=== PATIENT | male | born 1960 | race Hispanic/Latino ===

== ENCOUNTER 2023-08-26 18:17 | Inpatient (IN) | payer SELFPAY ==
[2023-08-26 18:44] LABS: #Basophils 0.1 thou/uL (0.0-0.2); #Eosinphils 0.2 thou/uL (0.0-0.7); #Monocytes 1.1 thou/uL (0.11-0.59); #Neutrophils 9.2 thou/uL (1.40-6.50); %Basophils 0.5 % (0.0-1.0); %Eosinophils 1.4 % (0.0-10.0); %Lymphocytes 8.8 % (21.0-51.0); %Monocytes 9.2 % (0.0-10.0); %Neutrophils 79.9 % (42.0-75.0); Hemoglobin 14.2 g/dL (14.0-18.0); Mean Corpuscular HGB CONC 35.5 g/dL (32.0-36.0); Mean Corpuscular Hemoglobin 36.2 pg (27.0-31.0); Mean Platelet Volume 10.4 fL (7.4-10.4); Platelet Count 282 10x3/uL (130-400); RBC Distribution Width 11.9 % (11.5-14.5); Red Blood Cell (RBC) Count 3.92 mill/uL (4.70-6.10); White Blood Cell (WBC) Count 11.6 10x3/uL (4.8-10.8)
[2023-08-26 19:13] LABS: ALT (SGPT) 8 U/L (8-55); AST (SGOT) 19 U/L (5-34); Albumin 3.8 g/dL (3.4-4.8); Alkaline Phosphatase 75 U/L (40-110); Anion Gap 13 mmol/L (10-20); BUN (Urea Nitrogen) 4 mg/dL (8.4-25.7); Bilirubin, Total 0.3 mg/dL (0.2-1.2); Calc. Creatinine Clearance 0 mL/min (70-130); Calcium 9.5 mg/dL (7.8-10.44); Carbon Dioxide 22 mmol/L (23-31); Chloride 99 mmol/L (98-107); Estimated GFR 104; Globulin 4.2 g/dL (2.4-3.5); Glucose 140 mg/dL (80-115); Sodium 130 mmol/L (136-145)
[2023-08-26] MEDS ORDERED: Acetaminophen 500 MG TAB ONE ×2 (19:24→19:32)
[2023-08-26] MEDS ORDERED: Piperacillin/Tazobactam 3.375 GM VIAL ONE (19:24)
[2023-08-26] MEDS ORDERED: Boostrix 0.5 ML (Tdap) VIAL (>/=7 yrs of age) ONE (20:32)
[2023-08-26] MEDS ORDERED: LORazepam 2 MG/ML SYR.(CARPUJECT) ONE (20:32)
[2023-08-26] MEDS ORDERED: Vancomycin 1 GM/200 ML (FROZEN) BAG ONE (20:51)
[2023-08-26] MEDS ORDERED: Lorazepam 2 MG/ML VIAL IM PRN (21:38)
[2023-08-26] MEDS ORDERED: Ondansetron ODT 4 MG TAB PO PRN (21:38)
[2023-08-26] MEDS ORDERED: Lorazepam 1 MG TAB PO PRN (21:38)
[2023-08-26] MEDS ORDERED: Senokot S 8.6-50 MG TAB PO PRN (21:43)
[2023-08-26] MEDS ORDERED: Acetaminophen 325 MG TAB PO PRN (21:43)
[2023-08-26] MEDS ORDERED: Nicotine 14 MG PATCH TD PRN (21:43)
[2023-08-26] MEDS ORDERED: Calcium Carbonate 500 MG ChewTAB PO PRN (21:43)
[2023-08-26] MEDS ORDERED: Electrolyte Replacement Protocol 1 EACH FS SCH (21:45)
[2023-08-26 22:55] LABS: Hemoglobin A1c 5.5 % (4.0-6.0)
[2023-08-26 23:08] LABS: Magnesium 2.1 mg/dL (1.6-2.6); Phosphorus 3.3 mg/dL (2.3-4.7)
[2023-08-26] MEDS: Thiamine HCl 200 MG/2 ML VIAL SLOW IVP SCH (23:15)
[2023-08-27 00:34] VITALS: BMI 22.6
[2023-08-27 04:45] LABS: #Basophils 0.1 thou/uL (0.0-0.2); #Eosinphils 0.3 thou/uL (0.0-0.7); #Monocytes 0.9 thou/uL (0.11-0.59); #Neutrophils 8.2 thou/uL (1.40-6.50); %Basophils 0.5 % (0.0-1.0); %Eosinophils 2.6 % (0.0-10.0); %Lymphocytes 6.7 % (21.0-51.0); %Monocytes 8.8 % (0.0-10.0); %Neutrophils 81.1 % (42.0-75.0); Hematocrit 37.4 % (42.0-52.0); Hemoglobin 13.3 g/dL (14.0-18.0); Mean Corpuscular HGB CONC 35.6 g/dL (32.0-36.0); Mean Corpuscular Hemoglobin 36.2 pg (27.0-31.0); Mean Corpuscular Volume 101.9 fl (78.0-98.0); Mean Platelet Volume 10.7 fL (7.4-10.4); Platelet Count 252 10x3/uL (130-400); RBC Distribution Width 12.1 % (11.5-14.5); Red Blood Cell (RBC) Count 3.67 mill/uL (4.70-6.10); White Blood Cell (WBC) Count 10.1 10x3/uL (4.8-10.8)
[2023-08-27 05:17] LABS: ALT (SGPT) 10 U/L (8-55); AST (SGOT) 16 U/L (5-34); Albumin 3.3 g/dL (3.4-4.8); Alkaline Phosphatase 71 U/L (40-110); Anion Gap 10 mmol/L (10-20); BUN (Urea Nitrogen) 5 mg/dL (8.4-25.7); Bilirubin, Total 0.3 mg/dL (0.2-1.2); Calc. Creatinine Clearance 111 mL/min (70-130); Calcium 8.6 mg/dL (7.8-10.44); Carbon Dioxide 26 mmol/L (23-31); Chloride 102 mmol/L (98-107); Estimated GFR 110; Globulin 3.4 g/dL (2.4-3.5); Glucose 137 mg/dL (80-115); Potassium 3.4 mmol/L (3.5-5.1); Protein, Total 6.7 g/dL (5.8-8.1); Sodium 135 mmol/L (136-145)
[2023-08-27] MEDS: Vancomycin 1 GM in Premix Bag 1 BAG IVPB SCH ×2 (06:09→17:17)
[2023-08-27] MEDS ORDERED: Potassium Chloride 20 MEQ TAB PO SCH (08:00)
[2023-08-27] MEDS ORDERED: Lisinopril 10 MG TAB PO SCH (09:00)
[2023-08-27] MEDS ORDERED: Famotidine/PF 20 mg/2ml Vial SLOW IVP SCH (09:00)
[2023-08-27] MEDS ORDERED: Famotidine 20 MG TAB PO SCH (09:00)
[2023-08-27] MEDS: Multivit, Therapeutic 1 TAB PO SCH (09:11)
[2023-08-27] MEDS: Folic Acid 1 MG TAB PO SCH (09:11)
[2023-08-27] MEDS ORDERED: Lorazepam 2 MG/ML VIAL SLOW IVP PRN (09:52)
[2023-08-27] MEDS ORDERED: Ondansetron ODT 4 MG TAB PO PRN (10:20)
[2023-08-27] MEDS ORDERED: Aspirin 81 mg Enteric Coated Tablet PO SCH (10:30)
[2023-08-27] MEDS: Cefepime 2 GM in Sodium Chloride 0.9% 100 ML IVPB SCH ×2 (10:55→21:37)
[2023-08-27] MEDS: Lorazepam 1 MG TAB PO SCH ×3 (10:55→21:36)
[2023-08-27] MEDS: Thiamine HCl 200 MG/2 ML VIAL SLOW IVP SCH (21:37)
[2023-08-27] MEDS: Mupirocin 2% Ointment 22 GM Tube TOP SCH (21:37)
[2023-08-27] MEDS ORDERED: Lorazepam 1 MG TAB PO PRN (21:38)
[2023-08-28 05:15] LABS: #Basophils 0.1 thou/uL (0.0-0.2); #Eosinphils 0.5 thou/uL (0.0-0.7); #Monocytes 1.2 thou/uL (0.11-0.59); #Neutrophils 9.1 thou/uL (1.40-6.50); %Basophils 0.4 % (0.0-1.0); %Lymphocytes 10.1 % (21.0-51.0); %Monocytes 9.9 % (0.0-10.0); %Neutrophils 75.1 % (42.0-75.0); Hematocrit 37.2 % (42.0-52.0); Hemoglobin 12.8 g/dL (14.0-18.0); Mean Corpuscular HGB CONC 34.4 g/dL (32.0-36.0); Mean Corpuscular Hemoglobin 35.6 pg (27.0-31.0); Mean Corpuscular Volume 103.3 fl (78.0-98.0); Mean Platelet Volume 10.8 fL (7.4-10.4); Platelet Count 236 10x3/uL (130-400); RBC Distribution Width 12.1 % (11.5-14.5); White Blood Cell (WBC) Count 12.1 10x3/uL (4.8-10.8)
[2023-08-28] MEDS: Lorazepam 1 MG TAB PO SCH ×2 (05:15→12:29)
[2023-08-28 05:36] LABS: Anion Gap 11 mmol/L (10-20); BUN (Urea Nitrogen) 4 mg/dL (8.4-25.7); Calc. Creatinine Clearance 103 mL/min (70-130); Calcium 8.6 mg/dL (7.8-10.44); Carbon Dioxide 24 mmol/L (23-31); Chloride 101 mmol/L (98-107); Estimated GFR 108; Glucose 109 mg/dL (80-115); Potassium 3.4 mmol/L (3.5-5.1); Sodium 133 mmol/L (136-145)
[2023-08-28 06:21] LABS: Vancomycin, Trough 8.5 ug/mL
[2023-08-28] MEDS ORDERED: Vancomycin 1 GM in Premix Bag 1 BAG IVPB SCH (08:00)
[2023-08-28] MEDS ORDERED: Potassium Chloride 20 MEQ TAB PO SCH (08:00)
[2023-08-28 08:11] VITALS: TEMP 98.2
[2023-08-28] MEDS ORDERED: Aspirin 81 mg Enteric Coated Tablet PO SCH (09:00)
[2023-08-28] MEDS: Folic Acid 1 MG TAB PO SCH (09:05)
[2023-08-28] MEDS: Multivit, Therapeutic 1 TAB PO SCH (09:06)
[2023-08-28] MEDS: Cefepime 2 GM in Sodium Chloride 0.9% 100 ML IVPB SCH (09:07)
[2023-08-28] MEDS: Mupirocin 2% Ointment 22 GM Tube TOP SCH (09:27)
[2023-08-28] MEDS: Vancomycin 1 GM in Premix Bag 1 BAG IVPB SCH (09:38)
[2023-08-28 11:48] VITALS: BP 133/79
[2023-08-28] MEDS ORDERED: Lorazepam 1 MG TAB PO PRN (21:38)
[2023-08-28] MEDS ORDERED: Lorazepam 0.5 MG TAB PO SCH (21:45)
[2023-08-29] MEDS ORDERED: Lorazepam 0.5 MG TAB PO SCH (10:30)
[2023-08-29] MEDS ORDERED: Thiamine 100 MG TAB PO SCH (21:00)
[2023-08-29] MEDS ORDERED: Lorazepam 0.5 MG TAB PO PRN (21:38)
[2023-08-30] MEDS ORDERED: FLU VACC QS2023-24(6MOS UP)/PF 60 MCG/0.5 ML SYRINGE IM ONE (09:00)
== END 2023-08-28 13:01 | disposition home or self-care (01) | DRG 593 ==
LOC: ERS 18:17 → 2SE 20:18 → OBSVTOIN 20:18
PROVIDERS: ADMIT Student in an Organized Health Care Education/Training Program; ATTEND Internal Medicine Critical Care Medicine
DX: L97.419 Non-pressure chronic ulcer of right heel and midfoot with unspecified severity (principal); F10.239 Alcohol dependence with withdrawal, unspecified; L03.115 Cellulitis of right lower limb; R21 Rash and other nonspecific skin eruption; Z79.899 Other long term (current) drug therapy; Z79.82 Long term (current) use of aspirin; F17.210 Nicotine dependence, cigarettes, uncomplicated
CPT/HCPCS: 36415; 80048; 80053; 80202; 83036; 83605; 83735; 84100; 85025; 87040; 87070; 87077; 87186; 87205; 90471; 90715; 93923; 96365; 96375; 97139; J0692; J1650; J2060; J2543; J3370-JW; J3411; J3490